=== PATIENT | female | born 1995 | race Caucasian/White ===

== ENCOUNTER → 2021-01-13 | Outpatient (CLI) | payer OTHER ==
--- NOTE | 2021-01-13 13:55 | REP ---
INDICATION: SIZE GREATER THEN DATES. NABILA 11 March 2021. COMPARISON: None. TECHNIQUE: Transabdominal obstetric sonography. FINDINGS: Scanning through the gravid uterus demonstrates a viable single intrauterine gestation in cephalic lie. motion is observed and heart rate is recorded at 135 beats per minute. A posterior placenta is seen, grade 1, without evidence of placenta previa. The cervix could not be measured due to low head position. No extrauterine abnormality is observed. Amniotic fluid is subjectively normal. The following anatomic structures are identified felt to be unremarkable: cranium, falx, face and profile nose and lips, lungs, four-chamber heart, diaphragm, left-sided stomach, abdominal wall cord insertion, urinary bladder and kidneys, spine, three-vessel cord. Cerebellum is less than optimally seen. Biometry chart: 7.9 cm, 31 weeks 5 days Head circumference 29.3 cm, 32 weeks 2 days Abdominal circumference 27.4 cm, 31 weeks 3 days Femur length 6.3 cm, 32 weeks 5 days Humeral length 5.5 cm, 31 weeks 6 days HC AC ratio normal 1.07 Cephalic index normal 0.75 Estimated weight 1873 g, 4 lb 2 oz, 22nd percentile for 32 weeks 4 days SD ratio umbilical cord artery by Doppler normal 2.30 RAMON is normal 19.2 cm IMPRESSION: Viable single intrauterine gestation at 32 weeks 0 days by today's composite sonographic criteria. NABILA by today's sonography March 10, 2021. No complication identified. Expected gestational age estimate based on NABILA of 11 March 2021 is 31 weeks 6 days. Appropriate interval growth. <Electronically signed by Aj Hauser > 01/13/21 [id number]
== END ==
LOC: M RAD 13:07
PROVIDERS: ATTEND Registered Nurse Maternal Newborn
DX: O26.843 Uterine size-date discrepancy, third trimester (principal); Z3A.32 32 weeks gestation of pregnancy

== ENCOUNTER 2021-01-27 16:43 | Outpatient (CLI) | payer OTHER ==
[~2021-01-27] VITALS: Ht 157.5 cm; Wt 66.8 kg
[2021-01-27 17:17] VITALS: BP 107/66
[2021-01-27] MEDS ORDERED: PEPC1TAB5 PO (17:46)
[2021-01-27] MEDS ORDERED: PRENTAB9 PO (17:46)
[2021-01-27 17:48] VITALS: BP 103/53
[2021-01-27] MEDS ORDERED: HOME MED LIST COMPLETE! XX SCH (17:50)
[2021-01-27] MEDS ORDERED: GI COCKTAIL 50ML BTL(HYOSCYAMINE/MAALOX/LIDOCAINE VISCOUS)(1:3:1) PO ONE (18:15)
[2021-01-27] MEDS ORDERED: ONDANSETRON 4 MG ORAL DISINTEGRATING TAB PO ONE (18:15)
[2021-01-27 19:19] VITALS: BP 97/56
[2021-01-27 19:21] VITALS: BP 102/60
[2021-01-27 19:21] LABS: APPEARANCE, URINE CLOUDY (CLEAR); BACTERIA, URINE AUTO 1+ (NEGATIVE); BILIRUBIN, URINE AUTO NEGATIVE (NEGATIVE); BLOOD, URINE BLOOD NEGATIVE (NEGATIVE); COLOR, URINE YELLOW (YELLOW); GLUCOSE, URINE (UA) AUTO NEGATIVE (NEGATIVE); KETONE, URINE AUTO TRACE mg/dL (NEGATIVE); LEUKOCYTE ESTERASE, URINE AUTO 3+ (NEGATIVE); MUCUS, URINE SMALL (NEGATIVE); NITRITE, URINE AUTO NEGATIVE (NEGATIVE); PROTEIN, URINE AUTO 1+ mg/dL (NEGATIVE); RBC, URINE AUTO 13 /HPF (0-3); SPECIFIC GRAVITY URINE AUTO 1.013 (1.002-1.035); SQUAMOUS EPITHELIAL CELL UR AU 15 /HPF (0-6); UROBILINOGEN, URINE AUTO 0.2 mg/dL (0.0-2.0); WBC, URINE AUTO 10 /HPF (0-3)
[2021-01-27 19:23] VITALS: BP 102/59
[2021-01-27] MEDS ORDERED: FLUCONAZOLE 50MG TABLET PO ONE (19:30)
[2021-01-27 19:42] LABS: HEMATOCRIT 33.4 % (36.0-47.0); HEMOGLOBIN 10.2 g/dl (12.0-15.5); MEAN CORPUSCULAR HEMOGLOBIN 24.3 pg (27.0-33.0); MEAN CORPUSCULAR HGB CONC 30.5 g/dl (32.0-36.5); MEAN CORPUSCULAR VOLUME 79.7 fl (80.0-96.0); PLATELET COUNT, AUTOMATED 316 10^3/uL (150-450); RED BLOOD COUNT 4.19 10^6/uL (4.00-5.40); WHITE BLOOD COUNT 8.3 10^3/uL (4.0-10.0)
--- NOTE | 2021-01-27 19:51 | IPNPDOC ---
Obstetrical Progress Note Date of Service Jan 27, 2021 Subjective Ms. Tadeo Hdz is a 25yo at 33+6 who presents with multiple complaints. - headaches only when she lays down located on the crown of her head associated with a pulsing sensation and reported swelling of the face that started at 14 wks gestation intermittently but has been constant each time she lays down since 28 weeks. The symptoms have not worsened since 28 weeks. She endorsed floaters in her vision. She endorsed dizzy spells that have occurred once per day x30s since 30 weeks. She denied weakness, parasthesias, changes in mentation, and other neurologic symptoms. She denied fatigue, shortness of breath, chest pain, or other cardiac symptoms. She denied shortness of breath beyond the gradual increase with her with activity. - nausea without vomiting and discomfort feeling in the epigastric area currently on pepcid - vaginal discharge x3wk, thick, green yellow color, tried metrogel with minimal improvement - pelvic pressure and sensation of incomplete urination, no dysuria, no contract ions or cramps, no VB, LOF, decreased FM Objective Vital Signs Date Time Temp Pulse Resp B/P (MAP) Pulse Ox O2 Delivery O2 Flow Rate FiO2 01/27/21 17:48 89 16 103/53 (70) 01/27/21 17:17 98.9 100 Room Air Assessment Variability: Moderate Accelerations: Positive Decelerations: Variable Heart Rate Tracing: Category II Tocometer Contractions: No Sterile Vaginal Examination Dilation: None Assessment and Plan Additional Comments Ms. Tadeo Hdz is a 25yo at 33+6 who presents with multiple complaints... - headaches when laying down with nausea, face swelling and vision floaters; dizzy spells daily x30s; present since 14 weeks, became persistent since 28 weeks - EKG normal, CBC/CMP/BNP/TSH normal, urine with ketones, orthostatic BP testing unremarkable, MRI of the brain unremarkable, heart/lung exam normal, VS normal, no edema on exam - Acute cardiopulmonary causes unlikely given work up today - Suspect a component of poor hydration given ketonuria, educated on importance of hydration in - Patient to return if symptoms worsen - Plan to place consult to neuro for headaches at her next apt - nausea without vomiting and discomfort feeling in the epigastric area currently on pepcid - improved with GI cocktail and zofran - adding omeprazole and zofran, script given - vaginal discharge failed metrogel - CHAYA/WP with abundant budding yeast, spec exam with abundant thick green white discharge - patient given fluconazole PO - G/C pending - pelvic pressure and sensation of incomplete urination - SVE C/T/H, no contractions on toco, UA appears contaminated - PTL is unlikely given findings, likely due to yeast infection - UCx ordered - category II FHR tracing (2 minute deceleration to ken[place] 90, and single small variable deceleration) during time of significant movement - over 2h of additional monitoring CAT I, BPP 10/10 - status overall reassuring Follow up at next [facility]. LAYO ZHANG DO Jan 27, 2021 19:51
[2021-01-27 20:10] LABS: ALBUMIN 2.4 GM/DL (3.2-5.2); ALT/SGPT 14 U/L (12-78); BILIRUBIN,TOTAL 0.3 MG/DL (0.2-1.0); BLOOD UREA NITROGEN 5 MG/DL (7-18); CALCIUM LEVEL 8.3 MG/DL (8.5-10.1); CARBON DIOXIDE LEVEL 22 MEQ/L (21-32); CHLORIDE LEVEL 109 MEQ/L (98-107); CREATININE FOR GFR 0.39 MG/DL (0.55-1.30); GLOMERULAR FILTRATION RATE > 60.0 (>60); GLUCOSE, FASTING 111 MG/DL (70-100); NT-PRO BNP 38 PG/ML (<125); POTASSIUM SERUM 3.7 MEQ/L (3.5-5.1); SODIUM LEVEL 138 MEQ/L (136-145)
[2021-01-27 20:46] LABS: GC DNA AMPLIFICATION NEGATIVE (NEGATIVE)
--- NOTE | 2021-01-27 21:23 | REPVR ---
PROCEDURE INFORMATION: Exam: US Biophysical Profile Without Non-Stress Test Exam date and time: 01/27/2021 8:14 PM Age: 25 years old Clinical indication: Other: Cat ii fhr; ; Additional info: Category ii fhr TECHNIQUE: Imaging protocol: US biophysical profile without non-stress testing. COMPARISON: US OBS SINGEL GEST 01/13/2021 1:18 PM FINDINGS: heart rate: heart rate 145 bpm. Presentation: Fetus in cephalic presentation. Placenta: Posterior placenta, grade 2. No placenta previa. BIOPHYSICAL PROFILE: Breathin/2 Gross body movements: 2/2 tone: 2/2 Qualitative amniotic fluid: 2/2 Biophysical Profile Score: 8/8 MATERNAL ANATOMY: Cervix: Cervix measures 3.6 cm. IMPRESSION: Normal biophysical profile score. Electronically signed by: Bryce Sandhu On 01/27/2021 21:22:51 PM
--- NOTE | 2021-01-27 21:36 | REPVR ---
PROCEDURE INFORMATION: Exam: MR Head Without Contrast Exam date and time: 01/27/2021 9:23 PM Age: 25 years old Clinical indication: Other: Positional headache, ; Patient HX: PT states inability to lay flat without getting a headache, this has been ongoing during and continues to get worse. TECHNIQUE: Imaging protocol: MR of the head without contrast. COMPARISON: No relevant prior studies available. FINDINGS: Brain: Normal. No acute infarct. No hemorrhage. No significant white matter disease. No edema. Cerebral ventricles: Normal. No ventriculomegaly. Pituitary gland and sella: There is enlargement of the anterior pituitary gland measuring 9.7 mm maximally. Findings consistent with previous status of the patient. Bones/joints: Unremarkable. Paranasal sinuses: Normal as visualized. No acute sinusitis. Mastoid air cells: Normal as visualized. No mastoid effusion. Orbital cavity: Unremarkable. Soft tissues: Unremarkable. IMPRESSION: 1. There is enlargement of the anterior pituitary gland measuring 9.7 mm maximally. Findings consistent with previous status of the patient. 2. Otherwise unremarkable. Electronically signed by: Bryce Sandhu On 01/27/2021 21:36:37 PM
--- NOTE | 2021-01-29 18:47 | ECGEPIP ---
[facility] - ED Test Date: 2021-01-27 Pat Name: LIANE ANAYADepartment: Room: - Gender: Female Digital Media Analyst: ab : 1995 Requested By: LAYO Sin Order Number: [id number] Reading MD: Aleyda Albert Measurements Intervals Breese Rate: 97 P: 70 MD: 116 QRS: 34 QRSD: 68 T: 18 QT: 352 QTc: 447 Interpretive Statements Normal sinus rhythm with sinus arrhythmia NSTTW abnormalities No prior Electronically Signed on 01-29-2021 18:47:20 EDT by Aleyda Albert
== END 2021-01-27 22:02 | disposition home or self-care (01) ==
LOC: M LDO 16:43
PROVIDERS: ATTEND Obstetrics & Gynecology
DX: O26.893 Other specified pregnancy related conditions, third trimester (principal); R51.9 Headache, unspecified; Z3A.33 33 weeks gestation of pregnancy; N89.8 Other specified noninflammatory disorders of vagina; R11.0 Nausea
CPT/HCPCS: 36415; 59025; 70551; 76815; 76819; 76820; 80053; 81001; 83880; 84443; 85027; 87086; 87661; 93005; G0378; G0463; Q0162

== ENCOUNTER 2021-03-04 04:20 | Inpatient (IN) | payer OTHER ==
[2021-03-04] VITALS (7 sets, daily range): BP systolic 99–132; BP diastolic 58–75
[~2021-03-04] VITALS: Ht 157.5 cm; Wt 66.7 kg
[~2021-03-04 04:20] MED LIST: PEPC1TAB5 PO; PRENTAB9 PO
[2021-03-04] MEDS ORDERED: OXYTOCIN INJ 10 UNITS/ML VIAL (J2590) As Ordered ONE (04:39)
[2021-03-04] MEDS ORDERED: OXYTOCIN 30 UNITS IN 0.9% NaCl 500ML IV BAG (J2590) As Ordered ONE (04:40)
--- OUTSIDE RECORDS SUMMARY | 2021-03-04 04:47 | CCD ---
Author Author [facility] Organization [facility] Address Unknown Phone Unavailable Support Name Relationship Address Phone NICOLETTE STOKES Next Of Kin [id number] [address] [place], [place] [id number] NICOLETTE STOKES [facility] [address] [place] [address] Unavailable Re-disclosure Warning The records that you are about to access may contain information from federally-assisted alcohol or drug abuse programs. If such information is present, then the following federally mandated warning applies: This information has been disclosed to you from records protected by federal confidentiality rules (42 CFR part 2). The federal rules prohibit you from making any further disclosure of this information unless further disclosure is expressly permitted by the written consent of the person to whom it pertains or as otherwise permitted by 42 CFR part 2. A general authorization for the release of medical or other information is NOT sufficient for this purpose. The Federal rules restrict any use of the information to criminally investigate or prosecute any alcohol or drug abuse patient.The records that you are about to access may contain highly sensitive health information, the redisclosure of which is protected by Article 27-F of the [facility] Public Health law. If you continue you may have access to information: Regarding HIV / AIDS; Provided by facilities licensed or operated by the [facility] Office of Mental Health; or Provided by the [facility] Office for People With Developmental Disabilities. If such information is present, then the following [facility] mandated warning applies: This information has been disclosed to you from confidential records which are protected by state law. State law prohibits you from making any further disclosure of this information without the specific written consent of the person to whom it pertains, or as otherwise permitted by law. Any unauthorized further disclosure in violation of state law may result in a fine or intermediate sentence or both. A general authorization for the release of medical or other information is NOT sufficient authorization for further disc losure. Immunizations Vaccine Date Status Description Data Source(s) COVID-19 VACCINE [employer] 01/31/2021 12:00:00 AM EDT completed [employer] Vacc[employer] Complete: YESThis Data wa s Submitted to [facility] Via [employer]. COVID-19 VACCINE [employer] 01/10/2021 12:00:00 AM EDT completed [place] [employer] Vacc[employer] Complete: NOThis Data was Submitted to [facility] Via [employer]. Medications No Information Insurance Providers Payer name Policy type / Coverage type Policy ID Covered democrat ID Covered democrat's relationship to cervantes Policy Cervantes Plan Information [facility] [id number] [facility] [id number] Problems, Conditions, and Diagnoses No Information Surgeries/Procedures No Information Results No Information Social History No Information
[2021-03-04] MEDS ORDERED: METHYLERGONOVINE MALEATE 0.2 MG/ML VIAL (J2210) IM PRN (04:50)
[2021-03-04] MEDS ORDERED: LR 1,000 ML IV SCH (04:50)
[2021-03-04] MEDS ORDERED: OXYTOCIN DRIP 30 UNITS in IV 1 EA IV PRN (04:50)
[2021-03-04] MEDS ORDERED: OXYTOCIN INJ 10 UNITS/ML VIAL (J2590) IV PRN (04:50)
[2021-03-04 05:01] LABS: HEMATOCRIT 34.9 % (36.0-47.0); HEMOGLOBIN 10.7 g/dl (12.0-15.5); MEAN CORPUSCULAR HEMOGLOBIN 22.2 pg (27.0-33.0); MEAN CORPUSCULAR HGB CONC 30.7 g/dl (32.0-36.5); MEAN CORPUSCULAR VOLUME 72.6 fl (80.0-96.0); PLATELET COUNT, AUTOMATED 335 10^3/uL (150-450); RED BLOOD COUNT 4.81 10^6/uL (4.00-5.40); WHITE BLOOD COUNT 9.4 10^3/uL (4.0-10.0)
[2021-03-04] MEDS ORDERED: DOCUSATE SODIUM 100MG CAPSULE PO PRN (05:20)
[2021-03-04] MEDS ORDERED: MEASLES,MUMPS,RUBELLA VACCINE INJ (MMR-II) (90707) SC SCH (05:20)
[2021-03-04] MEDS ORDERED: ACETAMINOPHEN 500 MG TAB PO PRN (05:20)
[2021-03-04] MEDS ORDERED: ANUSOL HC CREAM 30GM TOP PRN (05:20)
[2021-03-04] MEDS ORDERED: MOM 30ML SUSPENSION UDC PO PRN (05:20)
[2021-03-04] MEDS ORDERED: ACETAMINOPHEN TAB 650MG DOSE (2X325MG) PO PRN (05:20)
[2021-03-04] MEDS ORDERED: DIBUCAINE 1% OINTMENT 30GM TOP PRN (05:20)
[2021-03-04] MEDS ORDERED: RHOGAM 300 MCG (1500 IU) INJ (J2790) IM SCH (05:20)
[2021-03-04 05:22] LABS: CORD GAS ABE A -4.1; CORD GAS O2 SAT A 28.4 %; CORD GAS PCO2 A 49.7 mmHg; CORD GAS PH A 7.283 UNITS; CORD GAS PO2 A 16.1 mmHg; CORD GAS SBC A 19.5 MEQ/L; CORD GAS TCO2 A 24.5 MEQ/L
[2021-03-04 05:24] LABS: CORD GAS ABE V -3.5; CORD GAS HCO3 V 20.8 MEQ/L; CORD GAS O2 SAT V 73.4 %; CORD GAS PCO2 V 35.6 mmHg; CORD GAS PH V 7.384 UNITS; CORD GAS PO2 V 30.7 mmHg; CORD GAS TCO2 V 21.9 MEQ/L
--- NOTE | 2021-03-04 05:57 | HPEPDOC ---
Obstetrical History & Physical General Date of Admission Item Value Date Time White Blood Count 9.4 10^3/uL 03/04/21 0445 Red Blood Count 4.81 10^6/uL 03/04/21 0445 Hemoglobin 10.7 g/dl L 03/04/21 0445 Hematocrit 34.9 % L 03/04/21 0445 Mean Corpuscular Volume 72.6 fl L 03/04/21 0445 Mean Corpuscular Hemoglobin 22.2 pg L 03/04/21 0445 Mean Corpuscular Hemoglobin Concent 30.7 g/dl L 03/04/21 0445 Red Cell Distribution Width 18.6 % H 03/04/21 0445 Platelet Count 335 10^3/uL 03/04/21 0445 Mar 04, 2021 at 04:44 Primary Care Physician: Gulshan Navarrete MD History of Present Illness CONTRACTIONS Q 3 MINUTES MODERATE INTENSITY Chief Complaint: Contractions, term Information Provided By: Patient Age: 25 : 4 Term: 1 Pre-term: 0 Abortions: 2 Livin Care Care: Good Care Number of Visits: 9 Dating Final EDC: Mar 11, 2021 Final EDC for Daily Update: Mar 11, 2021 Final EDC by: LMP LMP: May 19, 2020 1st Trimester Date: Jul 23, 2020 Weeks + Days: 7.0 Estimated Date of Confinement: Mar 11, 2021 EGA at Admission: 39.0 Antepartum Course Diagnos(e)s Vital Signs Label Value Date Time Patient Temperature 99.1 degrees F 03/04/21445 Temperature Source Temporal 03/04/21445 Pulse 90 03/04/21445 Blood Pressure Assessment 132/75 (94) 03/04/21445 Source Automatic Cuff (NIBP) 25 YO IN ACTIVE LABOR RISK FACTORS SHORT INTERVAL GESTATIONAL ANEMIA, DEPRESSION /ANXIETY STRESS URINARY INCONTINANCE Height (inches): 62 Pre- weight (lbs.): 130 Admission Weight (lbs.): 147 Change in Weight (lbs.): 17 Past Medical History Past Obstetrical History : Past Obstetrical History: Multigravida Date of Delivery: Jul 19, 2019 Gestation: 38 Type of Delivery: Spontaneous Vaginal Del. 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 (2 SABS AT 6 WEEKS NO DAND C ) Past Medical History Medical History ANXIETY /DEPRESSION GESTATIONAL ANEMIA Surgical History: [place] teeth (ACL REPAIR, RIGHT UTERINE POLYPECTOMY,ORAL SURGERY) Family History Significant Family History: Other (MOTHER ANEMIA ) Social History Social history NON SMOKER NO ETOH NO RECREATIONAL DRUGS NO VAPING TO AD NO VIOLENCE Marital Status: Family situation: Spouse/partner home Psychosocial History: Depression (ANEXIETY NO MEDICATION) * Smoker: non-smoker Alcohol: Denies Drugs: denies Abuse Violence Screening Have you been hit/kicked/slapp: No Have you been sexually assault: No Imunizations Tdap status: current Influenza Status: current Allergies Coded Allergies: No Known Allergies (Unverified , 01/27/21) Medications Scheduled Famotidine (Pepcid) 20 Mg Tablet, 1 TAB PO BID No.137/Iron/Folic Acd ( Vitamin Tablet) 1 Each Tablet, 1 TAB PO DAILY Physical Examination Physical Examination GENERAL: Alert and oriented times three. BREAST: . ABDOMEN: Gravid and non-tender to touch. FETUS: Is vertex (VTX) by sterile vaginal examination (SVE), fetus is vertex (VTX) by Axel. HEART RATE: Regular rate and rhythm. LUNGS: Clear to auscultation (CTA). EXTREMITIES: No edema. No clonus. Deep tendon reflexes (DTRs) + . Other physical findings NORMOCEPHALIC ATRAUMATIC PERRLA CHEST CLEAR BILATERAL TO BASES HEART NO MURMUR REGULAR RHYTHM NO CLICKS OR RUBS. NO RASHES LESIONS PURITIS NO WHEEZE RHONCHI NO CHEST PAIN NO SOB ABDOMEN SOFT 4 QUADRANT BOWEL SOUNDS SF HEIGHT 40 WEEKS CERVIX 8 CM BULGING MEMBRANES -2 STATION OT TO RIGHT WELL APPLIED TO CERVIX Vital Signs/I&O Vital Signs Date Time Temp Pulse Resp B/P (MAP) Pulse Ox O2 Delivery O2 Flow Rate FiO2 03/04/21 04:46 99.1 19 03/04/21 04:46 90 132/75 (94) I&O- Last 24 Hours up to 6 AM 03/04/21 05:59 Output Total 200 ml Balance -200 ml Laboratory Data 24H LABS Laboratory Tests 2 03/04/21 04:45: Nucleated Red Blood Cells % (auto) 0.0 03/04/21 04:55: Serology Scanned Report Hepatitis B Testing 03/04/21 05:07: Cord Arterial Blood pH 7.283, Cord Arterial Blood PCO2 49.7, Cord Arterial Blood PO2 16.1, Cord Arterial Blood HCO3 23.0, Cord Arterial Blood Total CO2 24.5, Cord Arterial Blood Base Excess -4.1, Cord Arterial Base Excess (Standard 19.5, Cord Arterial Bld Oxygen Saturation 28.4, Cord Venous Blood pH 7.384, Cord Venous Blood PCO2 35.6, Cord Venous Blood PO2 30.7, Cord Venous Blood HCO3 20.8, Cord Venous Blood Total CO2 21.9, Cord Venous Base Excess (Actual) -3.5, Cord Venous Base Excess (Standard) 21.0, Cord Venous Blood Oxygen Saturation 73.4 CBC/BMP Laboratory Tests 03/04/21 04:45 Pertinent Laboratoy Data Blood Type: O+ RBC Antibody Screen: Negative HIV: Negative Hepatitis B: Negative Rapid Plasma Reagin: Nonreactive Rubella: Immune Varicella: Immune Chlamydia/Gonorrhea: Negative Group B Streptococcus: Negative Cystic Fibrosis: Negative Anatomy Ultrasound Ultrasound Date: Oct 25, 2020 Placenta Location: Anterior Normal Anatomy: Yes Placenta Previa: No Estimated Weight (grams): 384 Steroid Therapy Steroid Therapy: No Vaginal Examination Dilation: 8 cm Effacement: 100% Station: -2 Cervical Consistency: Soft Cervical Position: Anterior Presentation: Cephalic presentation Assessment Heart Rate (FHR): 140 Variability: Moderate Accelerations: Present Decelerations: None Tocometer Contractions: Yes Frequency: regular Duration: less than 60 seconds Strength: palpated as strong Assessment/Plan Assessment 25 year-old (G)4para (P)1 at 39 weeks by 7 -week ultrasound. Presents to Labor and Delivery (L&D) .8 CM PUSHING Plan Admit and orient. Outside Machinist Supervisor and consent. Diet: . Group B Streptococcus (GBS) [negative]. Labs and intravenous (IV) per unit protocol. Counseled on Pitocin and induction of labor (IOL). Lactated Ringers (LR): Bolus mL, then at mL/hr. Anticipate [normal spontaneous delivery ()]. C-S as appropriate. Labor and Delivery Counseling PATIENT ACTIVE LABOR AT 8 CM INVOLUNTARY PUSHING DELIVERY IMMANENT Gulshan Navarrete MD Mar 04, 2021 05:51
[2021-03-04] MEDS: IBUPROFEN 600MG TAB PO PRN ×2 (08:01→16:04)
[2021-03-04] MEDS: PRENATAL VITAMINS CHEWABLE TABLET PO SCH (08:01)
--- NOTE | 2021-03-04 09:49 | DN ---
DELIVERY NOTE DATE OF DELIVERY: 03/04/2021 TIME OF : GENDER: Female APGARS: 9 and 9 LACERATIONS: ANESTHESIA: ESTIMATED BLOOD LOSS: COUNTS: DESCRIPTION OF DELIVERY: This lady is a 4 para 1 admitted at 39 weeks of gestation in active labor, involuntarily pushing at 8 cm dilation. She had a ____ draining clear lochia at full dilatation, had a spontaneous vaginal delivery in the POP position. A live female infant, cord around the neck x1, 3330 grams (7 pounds 5 ounces), Apgars of 9 and 9 at one and five minutes respectively. Arterial pH 7.28, base excess -4.1; venous pH 7.38, base excess -3.5. Placenta delivered spontaneously thereafter. Three vessels, cord membranes and tissues intact. Uterus contracted well down on Pitocin. Examination anterior, posterior and lateral moya were complete, no evidence of tears or abrasions. Sphincter was tight. The uterus was palpated to be two below and contracted well down on her Pitocin. The patient and baby tolerated the procedure well.
[2021-03-05] MEDS: IBUPROFEN 600MG TAB PO PRN (00:30)
[2021-03-05 06:00] VITALS: BP 98/54
--- NOTE | 2021-03-05 07:04 | OBDS ---
[facility] Obstetrical Discharge Sum. Obstetrical Discharge Summary Date: Mar 05, 2021 : 2 Term: 2 Livin VDRL: ABO Blood Group (o) Rh: Positive Rubella: Immune Episiotomy none A/P, Post Course List any complications Admission diagnosis: active labor Discharge diagnosis: precipitous delivery Condition at Discharge: stable Discharge Instructions: Home Activity: Pelvic rest Diet: regular Medications: at [place] Follow-up: 6weeks pp, wants MIRENA IUD for contraception Other: She was transferred to unit in stable condition. Patient had an uncomplicated hospital course. On day of discharge she is meeting all discharge criteria/milestones to include tolerating PO, ambulating without assistance, urinating without difficulty, and her pain is well controlled. At time of discharge, patient was afebrile and vital signs were within normal limits. She is instructed to call to schedule routine follow-up within 6weeks. All aftercare instructions have been discussed with pt and she is in full understanding all off her instructions. She was discharged to home is stable condition VETO MONTALVO MD Mar 05, 2021 7:04 am
[2021-03-05] MEDS ORDERED: ACET-683 PO (07:06)
[2021-03-05] MEDS ORDERED: IBUP-1022 PO (07:06)
[2021-03-05 07:58] LABS: HEMATOCRIT 32.5 % (36.0-47.0); HEMOGLOBIN 9.8 g/dl (12.0-15.5); MEAN CORPUSCULAR HEMOGLOBIN 22.3 pg (27.0-33.0); MEAN CORPUSCULAR HGB CONC 30.2 g/dl (32.0-36.5); MEAN CORPUSCULAR VOLUME 73.9 fl (80.0-96.0); PLATELET COUNT, AUTOMATED 311 10^3/uL (150-450); WHITE BLOOD COUNT 10.6 10^3/uL (4.0-10.0)
[2021-03-05] MEDS: PRENATAL VITAMINS CHEWABLE TABLET PO SCH (09:29)
== END 2021-03-05 18:00 | disposition home or self-care (01) | DRG 807 ==
LOC: M LDO 04:20 → M LDI 04:44 → M OBS 06:20
PROVIDERS: ADMIT Obstetrics & Gynecology; ATTEND Obstetrics & Gynecology
PROC: 10E0XZZ Delivery of Products of Conception, External Approach (ICD-10-PCS; principal; 2021-03-04)
DX: O99.02 Anemia complicating childbirth (principal); Z37.0 Single live birth; D64.9 Anemia, unspecified; Z3A.39 39 weeks gestation of pregnancy; O69.81X0 Labor and delivery complicated by cord around neck, without compression, not applicable or unspecified

== ENCOUNTER 2022-02-01 18:07 | Emergency (ER) | payer OTHER ==
[~2022-02-01] VITALS: Ht 157.5 cm; Wt 60.2 kg
[~2022-02-01 18:07] MED LIST changes: +ACET-683 PO; +IBUP-1022 PO
[2022-02-01 18:10] VITALS: BP 139/80
[2022-02-01] MEDS ORDERED: MIRE1IUD IU (18:19)
== END 2022-02-01 19:55 | disposition home or self-care (01) ==
LOC: M ED 18:07
DX: K08.89 Other specified disorders of teeth and supporting structures (principal); F41.9 Anxiety disorder, unspecified; F32.9 Major depressive disorder, single episode, unspecified; Z97.5 Presence of (intrauterine) contraceptive device